=== PATIENT | male | born 1965 | race Caucasian/White ===

== ENCOUNTER → 2017-10-14 08:35 | Outpatient (REF) | payer BC, SELFPAY ==
[2017-10-14 13:03] LABS: ALT 109 U/L (12-78); AST 39 U/L (15-37); Albumin 3.9 g/dL (3.4-5.0); Alkaline Phosphatase 119 U/L (46-116); Bilirubin, Total 0.5 mg/dL (0.2-1.0); Cholesterol 176 mg/dL (50-200); HDL Cholesterol 30 mg/dL (40-60); LDL CHOLESTEROL 110 mg/dL (<100); Total Protein 6.9 g/dL (6.4-8.2); Triglyceride 323 mg/dL (30-150)
[2017-10-14 13:37] LABS: Bilirubin, Direct 0.14 mg/dL (0.00-0.20)
== END ==
LOC: NCHCN 08:35
PROVIDERS: PCP Nurse Practitioner; Visit Provider Nurse Practitioner
DX: E78.5 Hyperlipidemia, unspecified (principal); R74.8 Abnormal levels of other serum enzymes
CPT/HCPCS: 80061; 80076; 83721

== ENCOUNTER 2018-04-12 08:27 | Outpatient (REF) | payer BC, SELFPAY ==
[2018-04-12 13:36] LABS: ALT 139 U/L (12-78); AST 50 U/L (15-37); Alkaline Phosphatase 122 U/L (46-116); Anion Gap 8.6 mmol/L (3-11); BUN 11 mg/dL (7-18); Bilirubin, Total 0.6 mg/dL (0.2-1.0); CO2 30.4 mmol/L (21.0-32.0); CREATININE 1.06 mg/dL (0.70-1.30); Calcium 9.8 mg/dL (8.5-10.1); Chloride 100 mmol/L (98-107); Cholesterol 193 mg/dL (50-200); Glucose 214 mg/dL (70-100); HDL Cholesterol 31 mg/dL (40-60); LDL CHOLESTEROL 112 mg/dL (<100); Potassium 4.2 mmol/L (3.5-5.1); Sodium 139 mmol/L (136-145); Total Protein 7.2 g/dL (6.4-8.2); Triglyceride 404 mg/dL (30-150)
== END 2018-04-12 08:47 ==
LOC: NCHCN 08:27
PROVIDERS: PCP Nurse Practitioner; Visit Provider Nurse Practitioner
DX: E78.5 Hyperlipidemia, unspecified (principal); E66.9 Obesity, unspecified
CPT/HCPCS: 80053; 80061; 83721

== ENCOUNTER 2018-04-16 09:23 | Outpatient (REF) | payer BC, SELFPAY ==
[2018-04-16 13:45] LABS: Abs Immature Grans 0.02 k/cumm (0.0-0.09); Absolute Basophil Count 0.04 k/cumm (0.0-0.2); Absolute Eosinophil Count 0.19 k/cumm (0.0-0.7); Absolute Lymphocyte Count 1.82 k/cumm (1.2-3.4); Absolute Monocyte Count 0.62 k/cumm (0.11-0.7); Absolute Neutrophil Count 4.55 k/cumm (1.2-6.7); Basophils % 0.6; Eosinophils % 2.6; HCT 49.9 % (40.0-50.0); HGB 17.4 g/dL (13.5-17.5); Immature Grans % 0.3; Lymphocytes % 25.1; Mean Corp. HGB Concentration 34.9 g/dL (32.0-36.0); Mean Corpuscular Hemoglobin 30.7 pg (27.0-33.0); Mean Platelet Volume 12.2 fL (8.0-11.0); Monocytes % 8.6; Neutrophils % 62.8; Platelet Count 183 x1000/uL (130-400); RBC 5.67 m/cumm (4.50-6.00); RBC Distribution Width 13.4 % (11.8-14.1); White Blood Cell Count 7.24 k/cumm (4.4-10.8)
[2018-04-16 14:22] LABS: Iron 107 ug/dL (50-175); Total Iron Binding Capacity 319 ug/dL (250-450); Transferrin Sat 34 % (20-55)
[2018-04-16 15:17] LABS: Ferritin 475 ng/mL (8-388)
[2018-04-19 11:02] LABS: Hepatitis A Antibody IgM Negative (NEGAT); Hepatitis B Core Antibody Negative (NEGAT); Hepatitis B surface Ag Negative (NEGAT); Hepatitis C Ab w Rflx HCV PCR Negative (NEGAT)
== END 2018-04-16 09:43 ==
LOC: NCHCN 09:23
PROVIDERS: PCP Nurse Practitioner; Visit Provider Nurse Practitioner
DX: R79.89 Other specified abnormal findings of blood chemistry (principal)
CPT/HCPCS: 86704; 86709; 86803; 87340; 82728; 83540; 83550; 85025

== ENCOUNTER 2018-04-21 01:04 | Outpatient (CLI) | payer BC, SELFPAY ==
--- NOTE | 2018-04-21 07:38 | DI.US_ITS ---
SYMPTOM/DIAGNOSIS: ELEVATED LFT'S, R79.89 ABDOMEN ULTRASOUND: There are no prior comparison exams. The liver is enlarged measuring 20 cm. in length. The liver echogenicity is extremely increased, consistent with fatty infiltration. Posterior portions of the liver are not visible. No focal lesion is identified. There is no biliary dilatation. The gallbladder is unremarkable. The spleen measures 12 cm. in length. The kidneys are unremarkable. The pancreas is not well seen due to overlying bowel gas. IMPRESSION: Enlarged fatty liver.
== END 2018-04-21 01:24 ==
PROVIDERS: PCP Nurse Practitioner; Visit Provider Nurse Practitioner
DX: R79.89 Other specified abnormal findings of blood chemistry (principal); R16.0 Hepatomegaly, not elsewhere classified; K76.0 Fatty (change of) liver, not elsewhere classified
CPT/HCPCS: 76700

== ENCOUNTER 2018-05-03 13:00 | Outpatient (REF) | payer BC, SELFPAY ==
[2018-05-03 19:51] LABS: GGT 163 U/L (15-85)
[2018-05-05 10:24] LABS: Alpha 1 Antitrypsin,Serum 133 mg/dL (90-200)
[2018-05-05 14:08] LABS: IgA 239 mg/dL (85-499); Interpretation SEE COMMENTS; Tissue Transglutaminase IgA <1.2 U/mL (<4.0)
[2018-05-07 03:24] LABS: Specimen WB Whole Blood
== END 2018-05-03 13:20 ==
LOC: NCHCN 13:00
PROVIDERS: PCP Nurse Practitioner; Visit Provider Nurse Practitioner
DX: R79.89 Other specified abnormal findings of blood chemistry (principal)
CPT/HCPCS: 82784; 83516; 81256; 82103; 82977

== ENCOUNTER 2018-12-21 10:40 | Outpatient (CLI) | payer BC, SELFPAY ==
--- NOTE | 2018-12-21 09:27 | DI.RAD_ITS ---
EXAM: XR SHOULDER RT COMPLETE 2+V INDICATION: PAIN. COMPARISON: RIGHT SHOULDER COMPLETE from 01/23/2015 TECHNIQUE: 2D digital imaging was performed. FINDINGS: There is mild to moderate spurring of the AC joint. There is some spurring of the glenoid as well as the greater tuberosity. IMPRESSION: Mild to moderate degenerative changes.
== END 2018-12-21 11:00 ==
PROVIDERS: PCP Nurse Practitioner; Visit Provider Student in an Organized Health Care Education/Training Program
DX: M25.511 Pain in right shoulder (principal); M19.011 Primary osteoarthritis, right shoulder
CPT/HCPCS: 73030

== ENCOUNTER 2018-12-31 02:16 | Outpatient (CLI) | payer BC, SELFPAY ==
--- NOTE | 2018-12-31 11:45 | DI.MRI_ITS ---
EXAM: MR UPPER JOINT RT WO CLINICAL HISTORY: Surgical evaluation, profoundly weak RC, M75.101. TECHNIQUE: Multiplanar multisequence MRI was performed. COMPARISON: XR SHOULDER RT COMPLETE 2+V from 12/21/2018 FINDINGS: There is minimal spurring at the AC joint and tip of the acromion. Is some high signal at the AC j oint. There is a minimal amount of fluid in the subacromial sub deltoid bursa. The supraspinatus t endon appears intact. There is some some high signal in the infraspinatus tendon, consistent with te ndinitis. No focal tendon tear is seen. The subscapularis tendon shows diffuse thickening but no ab normal intrasubstance signal. The biceps tendon is unremarkable and normal in position. The teres m inor muscle shows severe atrophy. There is a calcification at the teres minor insertion on the humer al head. No abnormal high signal is seen. There is no glenohumeral joint effusion. No gross labral defects are seen. IMPRESSION: Infraspinatus tendinitis. Severe atrophy of the teres minor muscle and tendon calcification.
== END 2018-12-31 02:36 ==
PROVIDERS: PCP Nurse Practitioner; Visit Provider Student in an Organized Health Care Education/Training Program
DX: M75.81 Other shoulder lesions, right shoulder (principal); M75.101 Unspecified rotator cuff tear or rupture of right shoulder, not specified as traumatic; M62.511 Muscle wasting and atrophy, not elsewhere classified, right shoulder
CPT/HCPCS: 73221

== ENCOUNTER 2019-01-06 05:46 | Day surgery (SDC) | payer BC, SELFPAY ==
[2019-01-06] VITALS (15 sets, daily range): BP systolic 74–116; BP diastolic 35–73; PULSE 64–80; RESP 13–23; TEMP 36.4–36.6; O2SAT 90–96
[2019-01-06] MEDS: Lactated Ringers 1,000 ML 100 ML IV (07:00)
--- NOTE | 2019-01-06 07:00 | PDOC.DSDIS_ITS ---
Discharge Plan Disposition Patient Disposition: HOME Condition: Stable Discharge Details Reason For Visit: LHB TENDINOP,BURSITIS,IMPINGEMENT Attending Provider: Gato Horton Primary Care Provider: Jayne Francis Home Meds and New Rx's Prescriptions: New naproxen 250 mg tablet 250 mg PO BID PRN (Reason: pain, moderate) Qty: 60 RF: 0 oxycodone 5 mg tablet 5 mg PO Q4H PRN (Reason: pain, severe) Qty: 22 RF: 0 Continued citalopram [Celexa] 10 MG tablet 20 mg PO DAILY RF: 0 aspirin [Aspir-81] 81 MG tablet,delayed release (DR/EC) 81 mg PO DAILY RF: 0 trazodone 50 MG tablet 100 mg PO HS RF: 0 omeprazole 20 MG capsule,delayed release(DR/EC) 20 mg PO DAILY RF: 0 Discontinued ibuprofen [Advil] 200 MG tablet 800 mg PO PRN PRNRF: 0 Discharge Instructions Additional Instructions: Shoulder arthroscopy with biceps tenodesis. No rotator cuff repair. Accelerated rehab. Activity: Daily active range of motion to the wrist elbow and shoulder is encouraged. Only gentle active biceps flexion. 5 pound lifting limit right arm for 4 weeks. Do not lift anything away from body or over head. At home it is best to remove the sling and rest the arm on a pillow at your side or support the operative side with your other hand. You may allow the arm to dangle at your side. Recommend using sling when out of home for 4 weeks. A physical therapy prescription will be provided separately. Prescriptions: Continue home dose Aspirin 81 mg take 1 daily to prevent a blood clot Naproxen 250 mg take 1-2 every 12 hours with a meal as needed for moderate pain Oxycodone 5 mg take 1-2 every 4-6 hours as needed for severe pain You may use [id number] Tylenol (acetaminophen) as needed for mild pain. These pain medications may be taken all at once or in different combinations as needed. Also, recommend Colace (docusate) as a stool softener as surgery and pain medicine cause constipation. Dressings: Leave dressing in place for 2-3 days. May then remove and leave open to air or cover incisions with Band-Aids. Sutures will be removed in the office. May shower after 5 days. Follow-up: 10-[address] Horton Please call the office during business hours with any questions or concerns. Let us know right away if you develop any redness, drainage, fevers, chest pain, or trouble breathing. Do not drink alcohol or drive for at least 24 hours after anesthesia. Referrals: Gato Horton MD [ [facility] STAFF PHYSICIAN] - Discharge Orders Discharge Orders: Discharge Order (Routine); Ordered 01/06/19 Ordered By: Gato Horton DS: Diagnosis Discharge Diagnosis (1) Rotator cuff tear, right: Status: Acute (2) Impingement syndrome of right shoulder: Status: Acute (3) Bursitis of right shoulder: Status: Acute (4) Tendonitis of long head of biceps brachii of right shoulder: Status: Acute (5) Smoking: Status: Acute
[2019-01-06] MEDS: Bupivacaine 0.5% Pres-Free 30 ML VIAL (07:20)
[2019-01-06] MEDS: Bupivacaine LIPOSOME/PF 133 MG/10 ML VIAL IJ (07:20)
[2019-01-06] MEDS: ceFAZolin 2 GM/50 ML BAG IVPB (07:35)
[2019-01-06] MEDS: EPINEPHrine 1 MG/ML AMP pres-free (09:09)
--- NOTE | 2019-01-06 10:01 | ROE_ITS ---
Date of service: 01/06/19 Time of Service: 10:01 Operative Note Operative Note DATE OF PROCEDURE: 01/06/19 PRE-OP DIAGNOSIS: Right: 1. Partial rotator cuff tear 2. LHB tendinopathy/longitudinal tear 3. SLAP tear 4. Bursitis 5. Impingement POST-OP DIAGNOSIS: same PROCEDURE: Right: 1. Extensive debridement, CPT# 44952. This involved using arthroscopic hand instruments, power instruments, and radiofrequency instruments to debride areas of labral tearing, synovitis, and chondromalacia within the glenohumeral joint anteriorly and posteriorly. The superior glenoid rim, middle glenohumeral ligament, biceps sling, and leading edge of the subscapularis were also debrided. 2. Open biceps tenodesis, CPT# 46787. This involved reattaching the long head of the biceps tendon to the proximal humerus in the sub-pectoral area of the bicipetal groove at the correct tension. 3. Subacromial decompression, CPT# 88738. This involved using arthroscopic power instruments and a radiofrequency wand to complete a bursectomy and remove bone spurs on the undersurface of the acromion. The food service assistant was medically required in order to help assist in techniques above, which require positioning the arm, holding the arthroscope, and manipulating 2 to 4 instruments and sutures at the same time. This cannot be done without the help of an experienced food service assistant. SURGEON: Gato Horton PLANNER SCHEDULER: Giovanni Kim ANESTHESIA: GETA, regional and local PATHOLOGY: none sent Patient was transported to: PACU Patient's condition: stable Implants: Arthrex: Unicortical Proximal Biceps Tenodesis Button Indications: The patient was diagnosed with the above conditions and appropriately indicated for surgical intervention. Please see complete medical record for details. Findings: Exam under anesthesia: Full symmetric range of motion. Stable. Glenohumeral joint: Extensive long head of the biceps tendinopathy with 3 cm longitudinal split tearing. Type II SLAP tear with detached biceps anchor and labral fraying. Disrupted biceps sling and fraying of the SGHL and CHL with adjacent humeral head chondromalacia. Partial leading edge subscapularis tear less than 5% with small partial-thickness longitudinal split tear in the tendon body. Partial supraspinatus articular tear about 2 mm of footprint exposed with strong attachment and minimal fraying. Moderate synovitis anteriorly and posteriorly. Normal posterior bare spot. Nothing in the axillary recess. Subacromial space: Moderate bursitis. Mild supraspinatus tendon fraying. Intact bursal rotator cuff. Moderate undersurface acromia bone spur. Procedure Description: The patient was taken to the operating room and transferred to the operating room table. While under anesthesia, bilateral shoulders were examined. The patient was positioned in the beachchair position. All bony prominences were well-padded. Preoperative antibiotics were administered. The shoulder was prepped and draped in the usual sterile fashion. The correct patient, procedure, and side of the procedure were all verified prior to incision. Starting through the posterior portal a standard complete diagnostic arthroscopy was performed of the glenohumeral joint including inspection of the long head of the biceps, anterior and superior labrum, subscapularis tendon, supraspinatus and infraspinatus tendons, and axillary recess. The glenoid and humeral head cartilage as well as the posterior labrum were inspected from an anterior viewing portal. Significant findings noted above. The biceps tendon was tenotomized using arthroscopic scissors. Shaver was used to debride fraying of the biceps sling, biceps stump, humeral head chondromalacia, the middle glenohumeral ligament, and the leading edge of the subscapularis. Areas of synovitis were also debrided both anteriorly and posteriorly. The anterior and superior labrum was debrided of frayed tissue and the superior glenoid margin was debrided of chondromalacia as well as more superiorly to create a bleeding bony bed for superior labral healing. Starting through the posterior portal the arthroscope was directed into the subacromial space. A lateral 50 yard line lateral portal was created. A combination of power instruments and a radiofrequency ablator were used to debride bursitis anteriorly, posteriorly, and laterally as well as expose and smooth bone spurring on the undersurface of the acromion. The coracoacromial ligament was preserved. The bursectomy was completed viewing laterally and working from posteriorly and the rotator cuff was thoroughly inspected. Mild supraspinatus fraying was debrided. Overall the bursal rotator cuff was found to be intact. 10 cc of 0.5% bupivacaine with epinephrine was infiltrated about a 2 to 3 cm longitudinal incision at the inferior margin of the pectoralis major localized over the long head of the biceps tendon. Blunt and sharp dissection were used to expose the tendon in the bicipital groove. The tendon was brought out of the wound and kept off the skin on top of a blue towel. The correct location for sub-pectoral fixation was localized, prepped with a rasp, and then drilled with a 3.2 mm drill pin in a unicortical fashion. Using a fiber loop suture the tendon was prepped from the musculotendinous junction a few centimeters proximal. The excess tendon was amputated. The free suture ends were then passed through the unicortical button implant. The drill pin was removed and th e implant was placed into the humeral intramedullary canal. The button was flipped and the sutures were tensioned bringing the tendon down to bone. Tension and fixation were then tested and found to be appropriate. The free ends of the suture were were tied. A free needle was used to pass suture through the tendon and tied again. The wound was copiously irrigated with normal saline. Subcutaneous tissue was closed using 3-0 Monocryl in a buried interrupted fashion. Skin was closed using 3-0 Monocryl in a buried subcuticular running fashion. Skin glue was applied over the incision. Mast isol was applied about the incision. The incision was covered with Telfa, gauze, and covered with a Tegaderm dressing. The shoulder was drained of arthroscopic fluid. All portal sites were copiously irrigated. These incisions were closed using 3-0 nylon in a portal [id number] fashion, covered with Xeroform, dry gauze, and ABDs. The dressings were covered and secured with foam tape. The operative extremity was placed into a sling for immobilization. The patient awoke from anesthesia without complication and was transferred to the recovery room in a stable condition.
[2019-01-06] MEDS: Albuterol/Ipratropium 3 ML UPD VIAL UPD (11:10)
[2019-01-06] MEDS: Lactated Ringers 1,000 ML 80 ML IV (11:25)
== END 2019-01-06 14:46 | disposition home or self-care (01) ==
PROVIDERS: PCP Nurse Practitioner; Visit Provider Student in an Organized Health Care Education/Training Program
PROC: (CPT 29805; principal; 2019-01-06 07:30)
PROC: (CPT 23430; 2019-01-06 07:30)
DX: M75.111 Incomplete rotator cuff tear or rupture of right shoulder, not specified as traumatic (principal); M75.21 Bicipital tendinitis, right shoulder; S43.431A Superior glenoid labrum lesion of right shoulder, initial encounter; X58.XXXA Exposure to other specified factors, initial encounter; M75.51 Bursitis of right shoulder; M75.41 Impingement syndrome of right shoulder; M65.811 Other synovitis and tenosynovitis, right shoulder; M75.81 Other shoulder lesions, right shoulder; G89.18 Other acute postprocedural pain; M94.211 Chondromalacia, right shoulder; Z79.82 Long term (current) use of aspirin; R73.03 Prediabetes; F17.210 Nicotine dependence, cigarettes, uncomplicated; F41.9 Anxiety disorder, unspecified
CPT/HCPCS: 29823; 23430; 29826; J0171; J0690; J1100; J1885; J2250; J2370; J2405; J7620; L3670

== ENCOUNTER 2019-07-28 10:44 | Outpatient (CLI) | payer BC, SELFPAY ==
--- NOTE | 2019-07-28 10:15 | DI.RAD_ITS ---
EXAM: XR SHOULDER RT COMPLETE 2+V CLINICAL HISTORY: pain/weakness TECHNIQUE: COMPARISON: CR XR SHOULDER RT COMPLETE 2+V from 12/21/2018 FINDINGS: Views were obtained. There is an amorphous soft tissue calcification projected posterior to the pineda ral head presumably associated with infraspinatus tendon. Minimal soft tissue calcifications also se en near subscapularis attachment. There is mild narrowing of the cartilaginous joint space of glenoh umeral joint. There is mild marginal osteophyte formation at the glenohumeral joint. There are mild hypertrophic degenerative changes of the AC joint. IMPRESSION: Degenerative changes with findings suggesting calcific peritendinitis of infraspinatus.
== END 2019-07-28 11:04 ==
PROVIDERS: PCP Nurse Practitioner; Visit Provider Physician Assistant Surgical
DX: M25.511 Pain in right shoulder (principal); M19.011 Primary osteoarthritis, right shoulder; M75.31 Calcific tendinitis of right shoulder
CPT/HCPCS: 73030

== ENCOUNTER 2019-08-10 01:11 | Outpatient (CLI) | payer BC, SELFPAY ==
--- NOTE | 2019-08-10 06:15 | DI.MRI_ITS ---
EXAM: MR UPPER JOINT RT WO CLINICAL HISTORY: Persistent rotator cuff pain and weakness,M75.41, IMPINGEMENT SYNDROME,SLAP lesio n,TENDONITIS,S43.431D,M75.101,M75.21,M75.51 TECHNIQUE: Multiplanar multisequence MRI was performed. CONTRAST MATERIAL: Noncontrast COMPARISON: Plain films dated 28 Jul 2019 FINDINGS: There are moderate hypertrophic changes with some inferior spurring at the AC joint. There may be mi ld impingement. There is no supraspinatus muscle atrophy. There is a small amount of fluid in the s ubacromial subdeltoid bursa. There is irregularity at the greater tuberosity. There is spurring at the lesser tuberosity. There is some high signal and thinning of the distal supraspinatus tendon, co nsistent with a partial tear. The infraspinatus tendon shows a mild amount of edema. There is sever e atrophy of the teres minor muscle. There is a calcification at the distal teres minor tendon, cons istent with calcific tendinosis. There is edema seen in the subscapularis tendon distally. The long head of the biceps tendon is not seen. The short head of the biceps tendon appears intact. No song ohumeral joint effusion is seen. Labrum is not well evaluated. There is some degeneration of the an terior and superior labrum. A metallic density is seen in the anterior aspect of the proximal jus l shaft which may be secondary to previous biceps tendon repair surgery. IMPRESSION: Tendinosis versus partial tear involving the supraspinatus tendon. Tendinosis of the infraspinatus a nd subscapularis. Severe teres minor muscle atrophy. The long head of the biceps tendon is not visu alized, consistent with a complete tear. DATA REPOSITORY:
== END 2019-08-10 01:31 ==
PROVIDERS: PCP Nurse Practitioner; Visit Provider Student in an Organized Health Care Education/Training Program
DX: M75.21 Bicipital tendinitis, right shoulder; M75.41 Impingement syndrome of right shoulder; M75.51 Bursitis of right shoulder; S43.431D Superior glenoid labrum lesion of right shoulder, subsequent encounter; M75.101 Unspecified rotator cuff tear or rupture of right shoulder, not specified as traumatic; M62.512 Muscle wasting and atrophy, not elsewhere classified, left shoulder
CPT/HCPCS: 73221

== ENCOUNTER 2019-11-30 09:39 | Outpatient (REF) | payer BC, SELFPAY ==
[2019-11-30 21:01] LABS: Hemoglobin A1C 6.3 % (<5.7)
[2019-11-30 21:12] LABS: ALT 66 U/L (16-63); AST 31 U/L (15-37); Albumin 4.1 g/dL (3.4-5.0); Alkaline Phosphatase 110 U/L (46-116); Anion Gap 7.5 mmol/L (3-11); BUN 10 mg/dL (7-18); Bilirubin, Total 0.6 mg/dL (0.2-1.0); CO2 29.5 mmol/L (21.0-32.0); CREATININE 0.88 mg/dL (0.70-1.30); Calcium 9.4 mg/dL (8.5-10.1); Calculated LDL 78 mg/dL (<100); Chloride 103 mmol/L (98-107); Cholesterol 180 mg/dL (<200); Glucose 115 mg/dL (74-106); HDL Cholesterol 28 mg/dL (40-60); Potassium 4.1 mmol/L (3.5-5.1); Sodium 140 mmol/L (136-145); Total Protein 7.4 g/dL (6.4-8.2); Triglyceride 373 mg/dL (<150)
[2019-12-01 18:18] LABS: PSA, Screening 0.9 ng/mL (0.0-3.5)
== END 2019-11-30 09:59 ==
LOC: NCHCN 09:39
PROVIDERS: PCP Nurse Practitioner; Visit Provider Nurse Practitioner
DX: E11.9 Type 2 diabetes mellitus without complications (principal); E78.5 Hyperlipidemia, unspecified; Z00.00 Encounter for general adult medical examination without abnormal findings; K76.0 Fatty (change of) liver, not elsewhere classified; Z12.5 Encounter for screening for malignant neoplasm of prostate
CPT/HCPCS: 80053; 80061; 84153; 83036

== ENCOUNTER 2019-12-07 01:14 | Outpatient (CLI) | payer BC, SELFPAY ==
--- NOTE | 2019-12-07 | DI.CTLCSR_ITS ---
EXAM: CT CHEST LUNG CANCER SCREEN CLINICAL HISTORY: SMOKER, F17.210,BASELINE, SCREENING FOR LUNG CA TECHNIQUE: Imaging Protocol: Axial computed tomography images with coronal and sagittal reformatted images were created and reviewed COMPARISON: No exams were available for comparison FINDINGS: Tracheobronchial tree: Patent where visualized. Mediastinum and Gretchen: No dominant adenopathy or fluid collection. Pulmonary parenchyma: No focal consolidations. Nonspecific mild ground-glass opacities are seen in t he lungs particularly the right upper lobe. Mild emphysematous changes are seen in the lungs. Lung Nodules: There are two 3 mm nodules associated with the right minor fissure likely reflecting ly mph nodes. There is a 3 mm nodule in the anterior aspect of the right middle lobe. There is a 6 mm nodule in the right lower lobe. There is a 6 mm nodule in the left lingula. Pleura: No effusion or pneumothorax. Heart: The heart is not dilated. Mild coronary artery calcifications are present. No pericardial eff usion. Aorta: Thoracic aorta non-dilated.Atherosclerosis. Upper abdomen: Diffuse fatty infiltration of the liver. Bones: Degenerative changes. Soft Tissues: Unremarkable. IMPRESSION: 1. Several pulmonary nodules. 2. Fatty infiltration of the liver. 3. Coronary artery calcifications and atherosclerosis. Lung RADS Cat 2 - Benign Appearance / Behavior: Nodules with a very low likelihood of becoming a clin ically active cancer due to size or lack of growth Lung-RADS 1.0 CATEGORIES: Category 0 - Prior chest CT exam(s) being located for comparison. Category 1 - Annual screening in 12 months. No nodules or definitely benign nodules. Category 2 - Annual screening in 12 months. Benign appearance. Nodules with low likelihood of becomin g active cancer. Category 3 - 6-month follow-up. Probably benign. Short-term follow-up suggested. Nodules with low lik elihood of becoming active cancer. Category 4A - 3-month follow-up and CT/PET if >8 mm in size. Suspicious finding. Findings which requi re additional testing. Category 4B - Findings which require additional testing and tissue sampling. Suspicious finding. C Added to Any of the Above - History of prior lung cancer screening. S Added to Any of the Above - Significant unexpected other finding. RADIATION DOSE DELIVERED: 88.09mGy.cm Total DLP 88.09mGy.cm Total DLP 88.09mGy.cm Total DLP DATA REPOSITORY: All CT scans at this facility are submitted to the National Radiology Data Registry (NRDR) Dose Index Registry (DIR) with the [employer] ([employer]). RADIATION OPTIMIZATION: All CT scans at this facility use at least one of these dose optimization te chniques: automated exposure control; mA and/or kV adjustment per patient size (includes targeted exa ms where dose is matched to clinical indication); or iterative reconstruction.
== END 2019-12-07 01:34 ==
PROVIDERS: PCP Nurse Practitioner; Visit Provider Nurse Practitioner
DX: F17.210 Nicotine dependence, cigarettes, uncomplicated (principal); R91.8 Other nonspecific abnormal finding of lung field; K76.0 Fatty (change of) liver, not elsewhere classified; I25.10 Atherosclerotic heart disease of native coronary artery without angina pectoris
CPT/HCPCS: G0297

== ENCOUNTER 2020-01-03 02:28 | Emergency (ER) | payer BC, SELFPAY ==
[2020-01-03 02:32] VITALS: BP 155/86; PULSE 80; RESP 16; TEMP 36.5; O2SAT 95
--- NOTE | 2020-01-03 02:37 | W.ED.GENAD ---
Discharge Plan Disposition Patient Disposition: HOME Condition: Stable Discharge Details Clinical Impression: Acute sialoadenitis Primary Care Provider: Jayne Francis ED Provider: Kwesi Dumont Home Meds and New Rx's Prescriptions: New amoxicillin-pot clavulanate [Augmentin] 875-125 mg tablet 1 tab PO BID Qty: 14 RF: 0 Continued atorvastatin 40 mg tablet 40 mg PO QHS RF: 0 citalopram [Celexa] 10 MG tablet 20 mg PO DAILY RF: 0 aspirin [Aspir-81] 81 MG tablet,delayed release (DR/EC) 81 mg PO DAILY RF: 0 trazodone 50 MG tablet 100 mg PO HS RF: 0 omeprazole 20 MG capsule,delayed release(DR/EC) 20 mg PO DAILY RF: 0 Discharge Instructions Instructions: Sialoadenitis (ED) Additional Instructions: you can take 1000mg tylenol and 600mg ibuprofen every 6 hours for pain as needed follow up with your primary care provider if pain continues in a week return to the emergency department if you feel more ill, have high fevers, difficulty breathing or trouble swallowing liquids Medical Decision Making 54 yo male comes in with 1-2 days of right lower jaw pain and swelling. Has no teeth any more as they were pulled in the past. He denies fevers, chills, difficulty breathing or swallowing. He has very mild swelling to the right mid jaw without fluctuance, no swelling in the mouth and normal oropharynx and no submandibular swelling, no pain over hyoid or restrict neck movements. Suspect he has sialoadenitis based on exam. Will cover for infective sialoadenitis with augmentin and have him start sialogugues. No findings on history or exam to suspect abscess, osteo, rpa, pilot captain, epiglotitis. Advised f/u with pcp and return precautions given Differential Diagnosis Differential Diagnosis: sialoadenitis, parotitis HPI General Mode of arrival: ambulatory. Date/Time Provider Initiated Documentation: 01/03/20 02:30. Limitations to Documentation: no limitations. Information obtained by: patient. History of Present Illness 54 year old M presents to the emergency department with the chief complaint of right jaw pain, described as moderate, Patient started experiencing this day(s) (2) and it has been constant. No relieving factors improve symptom(s), No exacerbating factors reported . Related Data Home Medications Medication Instructions Recorded Confirmed aspirin [Aspir-81] 81 mg PO DAILY 08/31/12 01/03/20 trazodone 100 mg PO HS 08/31/12 01/03/20 citalopram [Celexa] 20 mg PO DAILY tab-cap 03/30/15 01/03/20 omeprazole 20 mg PO DAILY 01/06/19 01/03/20 atorvastatin 40 mg tablet 40 mg PO QHS 07/28/19 01/03/20 amoxicillin-pot clavulanate 1 tab PO BID #14 tab 01/03/20 [Augmentin] Previous Rx's Medication Instructions Recorded amoxicillin-pot clavulanate 1 tab PO BID #14 tab 01/03/20 [Augmentin] Allergies Allergy/AdvReac Type Severity Reaction Status Date / Time No Known Allergies Allergy Verified 01/03/20 02:37 General Stated Complaint: FacialProb LISA: 4 Review of Systems All systems reviewed & are unremarkable except as noted in HPI and below Constitutional Constitutional: Denies chills, Denies fever(s) and Denies weakness Cardiovascular Cardiovascular: Denies chest pain and Denies dyspnea Respiratory Respiratory: Denies dyspnea Gastrointestinal Gastrointestinal: Denies abdominal pain, Denies nausea and Denies vomiting Neurologic Neurologic: Denies weakness PFSH Medical History (Updated 01/03/20 @ 02:38 by Kwesi Dumont MD) Allergic rhinitis Anxiety Erectile dysfunction GERD (gastroesophageal reflux disease) History of ganglion cyst L wrist History of trigger finger L hand Hx of benign neoplasm R foot Hx of diabetes mellitus pt. reports it is diet controlled Hyperlipidemia Hypertension Impingement syndrome of right shoulder (~12/2018) Rotator cuff tear, right Tendonitis of shoulder, right Surgical History (Updated 05/24/19 @ 08:29 by LASHON Mohr) History of penile implant Hx of colonoscopy Hx of esophagogastroduodenoscopy Status post arthroscopy of right shoulder (01/06/19) Family History Other Guillain-[place] syndrome Heart disease Personal history of malignant neoplasm Social History Smoking/Tobacco Use Status: Current every day Tobacco Type: cigarettes Alcohol Intake: current Alcohol Intake frequency: holidays/special occasions only Alcohol type: hard liquor Drug use: Never Substance use type: does not use Details: alcohol: one month Current gender identity: male Do you feel safe at home: Yes Do you feel safe in your relationship?: Yes Exam Const General: no acute distress Orientation: alert HENMT Head: normal to inspection Ears: external ears normal General nose exam: external nose normal Mouth: moist mucous membranes Eyes General: appearance normal, both eyes and all related structures Neck Neck: normal visual inspection Resp Effort & Inspection: normal respiratory effort and able to speak in complete sentences Cardio Rate: regular rate Skin General skin exam: no rashes or lesions noted Neuro General: patient alert and patient oriented x3 Extrem General: normal to inspection Psych Mental Status: mental status grossly normal Course Vital Signs Vital signs: Vital Signs Temperature 36.5 C 01/03/20 02:32 Pulse 80 01/03/20 02:32 Respiratory Rate 16 01/03/20 02:32 Blood Pressure 155/86 H 01/03/20 02:32 Pulse Oximetry 95 01/03/20 02:32 Temperature 36.5 C 01/03/20 02:32 Temperature Source Skin 01/03/20 02:32 Pulse 80 01/03/20 02:32 Respiratory Rate 16 01/03/20 02:32 Respiratory Effort Non-Labored 01/03/20 02:36 Blood Pressure 155/86 H 01/03/20 02:32 Blood Pressure Position Sitting 01/03/20 02:32 Pulse Oximetry 95 01/03/20 02:32 Oxygen Delivery Method Room Air 01/03/20 02:32 Oxygen Flow Rate 0 01/03/20 02:32 Pain Level 8 01/03/20 02:32
[2020-01-03 02:43] VITALS: BP 155/86; PULSE 80; RESP 16; TEMP 36.5; O2SAT 95
[2020-01-03] MEDS: Amoxicillin 875/Clav. 125 TAB PO (02:45)
== END 2020-01-03 02:50 | disposition home or self-care (01) ==
PROVIDERS: Emergency Provider Emergency Medicine; PCP Nurse Practitioner
DX: K11.20 Sialoadenitis, unspecified (principal); I10 Essential (primary) hypertension; E11.9 Type 2 diabetes mellitus without complications
CPT/HCPCS: 99283

== ENCOUNTER 2020-04-20 02:23 | Outpatient (CLI) | payer BC, SELFPAY ==
--- NOTE | 2020-04-20 | DI.CT_ITS ---
EXAM: CT FACIAL WO CLINICAL HISTORY: RECURRENT SWELLING NEXT TO RT MANDIBLE,R22.0. TECHNIQUE: Imaging Protocol: Axial computed tomography images with coronal and sagittal reformatted images were created and reviewed COMPARISON: No exams were available for comparison FINDINGS: CT Face: Facial Bones: No definite fracture is noted in facial bones. No osseous mass, lytic or sclerotic les ion is seen. No CT findings to suggest osteomyelitis are present. Sinuses and Mastoids: There is mild mucosal thickening in the floor the right maxillary sinus. The remaining visualized paranasal sinuses are clear as are the mastoid air cells. The nasal septum is m idline. The ostiomeatal complexes are unremarkable. Globes, extraocular muscles, optic nerves and retrobulbar fat: Normal. Upper aerodigestive tract: Normal. Mandible and bilateral temporomandibular joints: The patient is edentulous. Soft tissues: The visualized submandibular and parotid glands are unremarkable. No soft tissue mass is seen. No focal fluid collection is seen to suggest an abscess. IMPRESSION: 1. No acute facial fracture. 2. No findings suggest osteomyelitis or osseous mass. 3. No soft tissue mass or abscess. 4. Mild mucoperiosteal thickening in the right maxillary sinus. RADIATION DOSE DELIVERED: 795.71mGy.cm Total DLP 795.71mGy.cm Total DLP DATA REPOSITORY: All CT scans at this facility are submitted to the National Radiology Data Registry (NRDR) Dose Index Registry (DIR) with the [employer] ([employer]). RADIATION OPTIMIZATION: All CT scans at this facility use at least one of these dose optimization te chniques: automated exposure control; mA and/or kV adjustment per patient size (includes targeted exa ms where dose is matched to clinical indication); or iterative reconstruction.
== END 2020-04-20 02:24 | disposition home or self-care (01) ==
LOC: DI 02:23
PROVIDERS: PCP Nurse Practitioner; Visit Provider Otolaryngology
DX: R22.0 Localized swelling, mass and lump, head (principal)
CPT/HCPCS: 70486

== ENCOUNTER 2020-12-03 15:41 | Outpatient (REF) | payer BC, SELFPAY ==
[2020-12-03 19:00] LABS: Abs Immature Grans 0.04 10^3/uL (0.0-0.06); Absolute Basophil Count 0.07 10^3/uL (0.0-0.2); Absolute Eosinophil Count 0.45 10^3/uL (0.0-0.7); Absolute Lymphocyte Count 2.25 10^3/uL (1.2-3.4); Absolute Monocyte Count 0.57 10^3/uL (0.1-0.8); Absolute Neutrophil Count 5.96 10^3/uL (1.2-6.7); Basophils % 0.7; Eosinophils % 4.8; HGB 16.3 g/dL (13.5-17.5); Immature Grans % 0.4; Lymphocytes % 24.1; MCH 29.2 pg (27.0-33.0); MCV 85.9 fL (80-95); MPV 11.1 fL (8.0-11.0); Monocytes % 6.1; Neutrophils % 63.9; Nucleated RBC 0 %; Platelet Count 208 10^3/uL (130-400); RBC 5.59 10^6/uL (4.36-5.78); RDW 13.2 % (11.8-14.1); WBC 9.34 10^3/uL (4.4-10.8)
[2020-12-03 19:53] LABS: ALT 34 U/L (16-63); AST 19 U/L (15-37); Albumin 3.9 g/dL (3.4-5.0); Alkaline Phosphatase 133 U/L (46-116); Anion Gap 9.4 mmol/L (3-11); BUN 8 mg/dL (7-18); Bilirubin, Total 0.6 mg/dL (0.2-1.0); CO2 29.6 mmol/L (21.0-32.0); Calcium 9.4 mg/dL (8.5-10.1); Calculated LDL 86 mg/dL (<100); Chloride 100 mmol/L (98-107); Cholesterol 169 mg/dL (<200); Glucose 285 mg/dL (74-106); HDL Cholesterol 31 mg/dL (40-60); Potassium 4.1 mmol/L (3.5-5.1); Sodium 139 mmol/L (136-145); Total Protein 7.3 g/dL (6.4-8.2); Triglyceride 262 mg/dL (<150)
[2020-12-03 20:13] LABS: Hemoglobin A1C 10.9 % (<5.7)
[2020-12-04 18:10] LABS: PSA, Screening 1.5 ng/mL (0.0-3.5)
== END 2020-12-03 15:42 | disposition home or self-care (01) ==
LOC: NCHCN 15:41
PROVIDERS: PCP Nurse Practitioner; Visit Provider Nurse Practitioner
DX: Z00.00 Encounter for general adult medical examination without abnormal findings (principal); E11.9 Type 2 diabetes mellitus without complications; E78.5 Hyperlipidemia, unspecified; Z12.5 Encounter for screening for malignant neoplasm of prostate; R63.4 Abnormal weight loss
CPT/HCPCS: 80053; 80061; 84153; 83036; 85025

== ENCOUNTER 2021-02-18 02:59 | Outpatient (CLI) | payer BC, SELFPAY ==
[2021-02-18 10:38] LABS: Source Nasal/Nares
[2021-02-18 14:26] LABS: COVID-19 PCR Negative (Negative)
== END 2021-02-18 03:00 | disposition home or self-care (01) ==
LOC: LBO 02:59
PROVIDERS: PCP Nurse Practitioner; Visit Provider Surgery
DX: Z20.822 Contact with and (suspected) exposure to COVID-19 (principal)
CPT/HCPCS: 87635

== ENCOUNTER 2021-02-19 08:52 | Day surgery (SDC) | payer BC, SELFPAY ==
[2021-02-19 09:08] VITALS: BP 130/94; PULSE 80; RESP 16; TEMP 36.7; O2SAT 97
[2021-02-19] MEDS: Lactated Ringers 1,000 ML 80 ML IV (09:25)
--- NOTE | 2021-02-19 09:43 | W.ANESPRE ---
General Info Date of Service Date Performed: 02/19/21 Height: 5 ft 11 in Weight: 90.7 kg Body Mass Index (BMI): 27.8 Surgical Procedure: Operation Date: 02/19/21 10:35 Proposed Procedures Side Surgeon kali Ortega, DO Meds Allergies and Home Medications Allergies Allergy/AdvReac Type Severity Reaction Status Date / Time No Known Allergies Allergy Verified 02/19/21 09:12 Home Medication Medication Instructions Recorded aspirin [Aspir-81] 81 mg PO DAILY 08/31/12 trazodone 100 mg PO HS 08/31/12 citalopram [Celexa] 20 mg PO DAILY tab-cap 03/30/15 omeprazole 20 mg PO DAILY 01/06/19 atorvastatin 40 mg tablet 40 mg PO QHS 07/28/19 bisacodyl 5 mg tablet,delayed 5 mg PO ONCE #4 tab 01/31/21 release metformin 1,000 mg tablet 1,000 mg PO BID 01/31/21 polyethylene glycol 3350 17 238 g PO ONCE #238 g 01/31/21 gram/dose oral powder Current Visit Medications: Current Medications Generic Name Dose Route Start Last Admin Trade Name Freq PRN Reason Stop Dose Admin Ringer's Solution 1,000 mls @ 80 mls/hr 02/19/21 06:00 02/19/21 09:25 IV 03/20/21 23:59 80 mls/hr INFUSION ANTONY Administration IV Miscellaneous Supplies 1 each 02/19/21 06:00 Iv Access IV 03/20/21 23:59 DIRECTED ANTONY Sodium Chloride 0 ml 02/19/21 06:00 Normal Saline Flush 10 Ml Syr IV 03/20/21 23:59 PRN PRN Sodium Chloride 0 ml 02/19/21 06:00 Normal Saline 10 Ml Vial IJ 03/20/21 23:59 DIRECTED PRN Sterile Water 0 ml 02/19/21 06:00 Water,Injection,Sterile 10 Ml Vial IJ 03/20/21 23:59 DIRECTED PRN PFSH Active Problems Active Problems: Problem Status Onset Code Screening for colon cancer Z12.11 Smoking F17.200 Medical History Active Problem List Screening for colon cancer (Acute) Smoking (Acute) Medical History Allergic rhinitis Anxiety Bursitis of right shoulder (~12/2018) Cigarette smoker Dental infection Diabetes mellitus Erectile dysfunction GERD (gastroesophageal reflux disease) History of ganglion cyst L wrist History of trigger finger L hand Hx of benign neoplasm R foot Hx of diabetes mellitus pt. reports it is diet controlled Hyperlipidemia Hypertension Impingement syndrome of right shoulder (~12/2018) Nonalcoholic fatty liver disease Obesity BOBBY (obstructive sleep apnea) Rotator cuff tear, right Sialoadenitis SLAP lesion of right shoulder (~12/2018) Tendonitis of long head of biceps brachii of right shoulder (~12/2018) Tubular adenoma of colon Surgical History Surgical History History of penile implant Hx of colonoscopy Hx of esophagogastroduodenoscopy Status post arthroscopy of right shoulder (01/06/19) Tobacco Smoking/Tobacco Use Status: Current every day Tobacco Type: cigarettes Smoking packs per day: 1.5 Smoking cigarettes per day: 30.0 Alcohol Alcohol Intake: current Alcohol intake frequency: holidays/special occasions only Alcohol type: hard liquor Substance Use Substance use: Never Substance use type: does not use Vital Signs and Lab Results Vital Signs Most Recent Vital Signs in EMR: Most Recent Vital Signs Temp Pulse Resp BP Pulse Ox 36.7 C 80 16 130/94 H 97 02/19/21 09:08 02/19/21 09:08 02/19/21 09:08 02/19/21 09:08 02/19/21 09:08 Point of Care Results Point of Care Results: Finger Stick Blood Glucose 106 02/19/21 09:18 Lab Results Blood Type / Crossmatch: No Data to Display Complete Blood Count: No Data to Display Complete Metabolic Panel: No Data to Display Liver Function Panel: No Data to Display Coagulation Panel: No Data to Display Cardiac Panel: No Data to Display Arterial Blood Gas: No Data to Display Venous Blood Gas: No Data to Display Pancreas Panel: No Data to Display Thyroid Panel: No Data to Display Infectious Disease: Coronavirus (COVID-19)(PCR) Negative (Negative) 02/18/21 09:20 02/18/21 Coronavirus 2019 Source Nasal/Nares 02/18/21 09:20 02/18/21 Blood Cultures: No Data to Display Toxicology Panel: No Data to Display Anesthesia Assessment and Plan Anesthesia History Personal History: No History of Anesthesia Complications Family History: No Family History of Anesthesia Complications Exercise Tolerance Exercise Tolerance: Metabolic Equivalents>4 Pertinent Negatives Pertinent Negatives: No Symptoms of GERD, No Major Cardiovascular Symptoms or Complaints and No Major Pulmonary Symptoms or Complaints Cardiac & Pulmonary Exam Cardiac Exam: Normal S1/S2 Heart Sounds Pulmonary Exam: Clear Bilateral Breath Sounds Implantable Cardiac Device Does patient have a Pacemaker or an ICD?: No Airway Exam Known Difficult Airway: No Mallampati Class: 2 Mouth Opening: Normal (> 3cm) Thyromental Distance: Greater than 3 cm Neck Range of Motion: Full ROM Neck Circumference: Normal Teeth Condition: Removable Dentures/Plates Upper and Removable Dentures/Plates Lower ASA Classification ASA Score: ASA 2 Emergency Case?: No NPO Status NPO Status: NPO Clears >2 hours, Solids >8 hours Anesthesia Plan Resuscitation Status: Full Code Anesthesia Technique: General Anesthesia Airway Planned: Natural Airway Monitors Used: Standard Monitors
[2021-02-19 09:44] VITALS: BMI 27.8
--- NOTE | 2021-02-19 10:24 | BOWEL_PTH ---
PATIENT: Capo Holliday LOC: [facility] U#:[id number] AGE/SX: 55/M ROOM: RE02/19/[address]: Roma Ortega : 1965 BED: DIS: 02/19/2021 SPEC #: [id number] RECD: 02/19/21 12:26 STATUS: MENDOZA REQ #: [id number] KHAI: 02/19/21 10:[address]: Roma Ortega DEPT: Surgical Specimen RECD BY: Marguerite Munguia ENTERED: 02/19/21 12:28 SP TYPE: Bowel OTHR DR: Jayne Francis Tissues: 1 - BIOPSY BOWEL Procedures: GROSS AND MICRO LEVEL 4 Comments: [id number]
--- NOTE | 2021-02-19 10:43 | PDOC.DSDIS_ITS ---
Discharge Plan Disposition Patient Disposition: HOME Condition: Good Discharge Details Reason For Visit: colon scope Attending Provider: Roma Ortega Primary Care Provider: Jayne Francis Home Meds and New Rx's Prescriptions: Continued atorvastatin 40 mg tablet 40 mg PO QHS RF: 0 metformin 1,000 mg tablet 1,000 mg PO BID RF: 0 citalopram [Celexa] 10 MG tablet 20 mg PO DAILY RF: 0 aspirin [Aspir-81] 81 MG tablet,delayed release (DR/EC) 81 mg PO DAILY RF: 0 trazodone 50 MG tablet 100 mg PO HS RF: 0 omeprazole 20 MG capsule,delayed release(DR/EC) 20 mg PO DAILY RF: 0 Discontinued polyethylene glycol 3350 17 gram/dose powder 238 g PO ONCE Qty: 238 RF: 0 bisacodyl [Dulcolax (bisacodyl)] 5 mg tablet,delayed release (DR/EC) 5 mg PO ONCE Qty: 4 RF: 0 Discharge Instructions Additional Instructions: DSU Colonoscopy Post- Op Instructions Instructions for Everyone who is given Anesthesia: For your safety, please do the following for the next twenty-four (24) hours: *Do Not operate a motor vehicle (car, truck, motorcycle, etc.) *Do Not drink alcoholic beverages or use any recreational drugs for the first 24 hours or while taking pain medications. The medications in your body may have a reaction that can be dangerous. *Do Not make any important decisions or sign any important papers. Findings: diverticula Polyps Follow up: My office will send a letter in 2 to 3 weeks time detailing as to what type of polyps they were, and when we want you to repeat the colonoscopy, probably 5yrs. 1. No lifting over 20 pounds or strenuous activity for the first 24 hours after your procedure. After 24 hours there are no restrictions on your activity but you may feel fatigued for a few days. 2. After you arrive home you may have a light meal and return to your normal diet as you can tolerate it without feeling sick to your stomach. 3. You may have a bloated, gaseous feeling in your belly (abdomen) after a colonoscopy. Passing gas and belching will help. Walking or lying down on your left side with your knees flexed may relieve the discomfort. Call the office at [phone] (Office) or [phone] (Hospital) right away if you notice any of the following: a.Vomiting of blood or ?coffee ground stools?. b.Rectal bleeding 1Tbsp, blood clots or continuous bleeding. c.Severe belly (abdominal) pain. d.A hard distended belly (abdomen) and an inability to pass gas. 4. Please don?t expect to have a normal BM (bowel movement) for 2-3 days after your procedure. 5. If there are questions regarding the findings of your procedure, please contact your doctor 6. If you are unable to contact your doctor with a problem, contact the hospital at [phone]. 7. Continue all your regular medications unless directed otherwise. I understand the above instructions and have no questions. Signature of Patient or Adult Escort Name of Responsible Adult Escort Signature of Nurse Date/Time Activity:: see baove Diet:: Carb Counting Discharge Orders Discharge Orders: Discharge Order (Routine); Ordered 02/18/21 Ordered By: Roma Ortega DS: Diagnosis Discharge Diagnosis (1) Adenomatous polyp of rectum: Status: Acute (2) Diverticula of colon: Status: Acute
--- NOTE | 2021-02-19 10:50 | W.COLOREPORT ---
Colonoscopy Report Date of procedure: 02/19/21 Pre-op diagnosis general: Adenomatous polyps Post-op diagnosis procedure note: other (Adenomatous polyps and diverticula) Surgeon: Roma Ortega Anesthesia Type: General:No Airway Estimated blood loss (mL): 1 Pathology: other Complications: None Disposition: same day Prep: Miralax/Dulcolax Retraction Time: 10 Procedure Description: After informed consent was obtained the patient was taken to the procedure room and placed in a left decubitous position. Monitors were applied and a time out was done. The patients name, date of , procedure, allergies to medications and metal in their body was reviewed. The patient was then sedated. Once sedated and comfortable a rectal exam was done. External exam was normal. Internal exam revealed a normal sphincter tone and no palpable masses. The scope was then introduced and retrofelexed. No internal hemorrhoids were identified. The scope was then advanced to the cecum without difficulty. The TI and appendiceal orifice were identified. The prep was adequate-had multiple large formed residual stool balls from his multiple diverticula. He had multiple, large diverticula confined to the sigmoid colon. There is no signs of active bleeding or infection. Treatment no bleeding is noted. He has x2, 5 mm, flat adenomatous polyps at 20 cm. These are removed with cold biting forcep. All specimen is retrieved and no bleeding is noted. The scope was then slowly retracted over 10 minutes back into the rectum. The scope was removed and the patient was woken up and taken back to Same day surgery in stable condition. The patient tolerated the procedure well and there were no immediate complications. Follow up: The patient should follow up in 5 years unless they develop changes in bowel habits or other new gastrointestinal complaints.
[2021-02-19 10:52] VITALS: BP 92/68; PULSE 77; RESP 18; TEMP 36.4; O2SAT 95
[2021-02-19 11:20] VITALS: BP 126/82; PULSE 78; RESP 16; TEMP 36.5; O2SAT 96
--- NOTE | 2021-02-19 11:21 | W.ANESPOSTOP ---
Postoperative Evaluation Date, Time and Location Date Performed: 02/19/21 Time Performed: 10:55 Patient Location: Day Surgery Unit Vital Signs Most Recent Imported Vital Signs: Most Recent Vital Signs Temp Pulse Resp BP Pulse Ox 36.4 C L 77 18 92/68 L 95 02/19/21 10:52 02/19/21 10:52 02/19/21 10:52 02/19/21 10:52 02/19/21 10:52 Pain Score Most Recent Pain Score: Most Recent Pain Score Pain Level 0 02/19/21 10:52 Assessment Mental Status: Awake (Alert & Oriented to Patient Baseline) Airway and Respiratory Function: Patent airway with normal (patient baseline) respiratory exam Cardiovascular Function: Hemodynamically Stable Hydration Status: Adequately Hydrated Nausea & Vomiting: No Nausea or Vomiting Pain: Pt. Denies Any Pain Peripheral Nerve Block: Patient did not receive a nerve block
== END 2021-02-19 11:31 | disposition home or self-care (01) ==
PROVIDERS: PCP Nurse Practitioner; Visit Provider Surgery
PROC: 0DJD8ZZ Inspection of Lower Intestinal Tract, Via Natural or Artificial Opening Endoscopic (ICD-10-PCS; CPT 45378; principal; 2021-02-19 10:30)
DX: Z12.11 Encounter for screening for malignant neoplasm of colon (principal); K63.5 Polyp of colon; K57.30 Diverticulosis of large intestine without perforation or abscess without bleeding; Z86.010 Personal history of colon polyps; E11.9 Type 2 diabetes mellitus without complications; G47.33 Obstructive sleep apnea (adult) (pediatric)
CPT/HCPCS: 45380; 88305

== ENCOUNTER 2022-01-14 14:45 | Outpatient (REF) | payer BC, SELFPAY ==
[2022-01-14 15:58] LABS: Abs Immature Grans 0.03 10^3/uL (0.0-0.06); Absolute Basophil Count 0.06 10^3/uL (0.0-0.2); Absolute Eosinophil Count 0.14 10^3/uL (0.0-0.7); Absolute Lymphocyte Count 1.31 10^3/uL (1.2-3.4); Absolute Monocyte Count 0.78 10^3/uL (0.1-0.8); Absolute Neutrophil Count 6.11 10^3/uL (1.2-6.7); Basophils % 0.7; Eosinophils % 1.7; HCT 48.7 % (40.0-50.0); HGB 16.3 g/dL (13.5-17.5); Immature Grans % 0.4; Lymphocytes % 15.5; MCH 29.8 pg (27.0-33.0); MCHC 33.5 % (32.0-36.0); MCV 89 fL (80-95); MPV 11.1 fL (8.0-11.0); Monocytes % 9.3; Neutrophils % 72.4; Platelet Count 208 10^3/uL (130-400); RBC 5.47 10^6/uL (4.36-5.78); RDW 13.7 % (11.8-14.1); RDW-SD 44.1 fL; WBC 8.43 10^3/uL (4.4-10.8)
[2022-01-14 16:25] LABS: ALT 35 U/L (16-63); AST 27 U/L (15-37); Alkaline Phosphatase 103 U/L (46-116); Anion Gap 6.7 mmol/L (3-11); BUN 11 mg/dL (7-18); Bilirubin, Total 0.4 mg/dL (0.2-1.0); CO2 29.3 mmol/L (21.0-32.0); CREATININE 0.9 mg/dL (0.70-1.30); Calcium 9.8 mg/dL (8.5-10.1); Chloride 104 mmol/L (98-107); Estimated GFR 99.62 (mL/min/1.73m2); Glucose 90 mg/dL (74-106); Potassium 4.1 mmol/L (3.5-5.1); Sodium 140 mmol/L (136-145); Total Protein 7.7 g/dL (6.4-8.2)
[2022-01-14 16:49] LABS: Calculated LDL 72 mg/dL (<100); Cholesterol 157 mg/dL (<200); HDL Cholesterol 37 mg/dL (40-60); Triglyceride 242 mg/dL (<150)
== END 2022-01-14 14:46 | disposition home or self-care (01) ==
LOC: NCHCN 14:45
PROVIDERS: PCP Nurse Practitioner; Visit Provider Nurse Practitioner Family
DX: E11.9 Type 2 diabetes mellitus without complications (principal); E78.5 Hyperlipidemia, unspecified; K21.9 Gastro-esophageal reflux disease without esophagitis
CPT/HCPCS: 80053; 80061; 85025

== ENCOUNTER 2023-07-14 11:44 | Outpatient (REF) | payer BC, SELFPAY ==
[2023-07-14 18:42] LABS: HCT 53.2 % (40.0-50.0); HGB 17.8 g/dL (13.5-17.5); MCH 29.8 pg (27.0-33.0); MCHC 33.5 % (32.0-36.0); MCV 89 fL (80-95); MPV 10.8 fL (8.0-11.0); Platelet Count 214 10^3/uL (130-400); RBC 5.97 10^6/uL (4.36-5.78); RDW 13.6 % (11.8-14.1); RDW-SD 44.1 fL; WBC 7.59 10^3/uL (4.4-10.8)
[2023-07-14 18:58] LABS: ALT 70 U/L (16-63); AST 37 U/L (15-37); Albumin 4.2 g/dL (3.4-5.0); Alkaline Phosphatase 93 U/L (46-116); Anion Gap 4.9 mmol/L (3-11); BUN 10 mg/dL (7-18); Bilirubin, Total 0.4 mg/dL (0.2-1.0); CO2 31.1 mmol/L (21.0-32.0); Calculated LDL 69 mg/dL (<100); Chloride 102 mmol/L (98-107); Cholesterol 148 mg/dL (<200); Estimated GFR 87.24 (mL/min/1.73m2); Glucose 116 mg/dL (74-106); HDL Cholesterol 35 mg/dL (40-60); Potassium 4.5 mmol/L (3.5-5.1); Sodium 138 mmol/L (136-145); Triglyceride 223 mg/dL (<150)
[2023-07-14 19:02] LABS: Hemoglobin A1C 6.6 % (<5.7)
[2023-07-14 19:27] LABS: COMMENT (LAB VIEW ONLY) < 13.00 mg/dL
[2023-07-15 19:28] LABS: PSA, Screening 1.3 ng/mL (<=3.5)
== END 2023-07-14 11:45 | disposition home or self-care (01) ==
LOC: NCHCN 11:44
PROVIDERS: Visit Provider Nurse Practitioner Family
DX: Z00.00 Encounter for general adult medical examination without abnormal findings (principal); E11.9 Type 2 diabetes mellitus without complications
CPT/HCPCS: 80053; 80061; 84153; 85027; 82043; 82570; 83036